=== PATIENT | female | born 1985 | race Caucasian/White ===

== ENCOUNTER 2022-10-18 04:58 | Inpatient (IN) | payer BC ==
[2022-10-18 05:31] VITALS: BMI 24.6
[2022-10-18] MEDS ORDERED: NS w/ Oxytocin 30 units 0 ML ONE (08:32)
[2022-10-18] MEDS ORDERED: Promethazine HCl 25 MG/ML VIAL IM PRN (08:39)
[2022-10-18] MEDS ORDERED: HYDROcodone/Acetaminophen 5/325 mg Tablet PO PRN ×4 (08:39→17:00)
[2022-10-18] MEDS ORDERED: hydrALAZINE 20 MG/ML VIAL SLOW IVP PRN ×2 (08:39→17:00)
[2022-10-18] MEDS ORDERED: Diphenoxylate HCl/Atropine Tablet PO PRN ×2 (08:39)
[2022-10-18] MEDS ORDERED: Misoprostol 200 MCG TAB PR PRN (08:39)
[2022-10-18] MEDS ORDERED: Docusate 100 MG CAP PO PRN (08:39)
[2022-10-18] MEDS ORDERED: Butorphanol Tartrate 1 MG/ML VIAL SLOW IVP PRN (08:39)
[2022-10-18] MEDS ORDERED: Ondansetron PF 4 MG/2 ML Vial IVP PRN ×2 (08:39→17:00)
[2022-10-18] MEDS ORDERED: Lidocaine 1% (PF) 30 ML VIAL SC PRN (08:39)
[2022-10-18] MEDS ORDERED: Acetaminophen 500 MG TAB PO PRN (08:39)
[2022-10-18] MEDS ORDERED: NS w/ Oxytocin 30 units 500 ML IV SCH ×3 (08:45→17:00)
[2022-10-18] MEDS ORDERED: Lactated Ringer's 1,000 ML IV SCH (08:45)
[2022-10-18 09:19] LABS: Hemoglobin 13.5 g/dL (12.0-15.5); Mean Corpuscular HGB CONC 34.5 g/dL (32.0-36.0); Mean Corpuscular Hemoglobin 31.3 pg (27.0-33.0); Mean Corpuscular Volume 90.5 fl (81.6-98.3); Mean Platelet Volume 10.7 fl (7.4-10.4); Platelet Count 234 10x3/uL (150-450); RBC Distribution Width 13.5 % (11.5-14.5); Red Blood Cell (RBC) Count 4.32 10x6/uL (3.90-5.03); White Blood Cell (WBC) Count 11.6 10x3/uL (3.5-10.5)
[2022-10-18 09:45] LABS: HBSAg Index 0.14 S/CO (0-0.99); HIV (1/2) Antibody/Antigen Non-Reactive (NonReactive); HIV 1/2 INDEX 0.04 S/CO (<1.00); Hep B Surf Ag Non-Reactive S/CO (NonReactive)
[2022-10-18 09:46] LABS: Syphilis Antibody Nonreactive (Nonreactive); Syphilis Antibody Index 0.03 S/CO (<1.00 Non-Reactive)
[2022-10-18] MEDS ORDERED: Oxytocin 10 UNITS/ML VIAL ONE (16:26)
[2022-10-18] MEDS ORDERED: Preparation H Ointment 28 GM TUBE PR PRN (17:00)
[2022-10-18] MEDS ORDERED: Lanolin Ointment 7 GM TUBE TOP PRN (17:00)
[2022-10-18] MEDS ORDERED: Misoprostol 200 MCG TAB VAG PRN (17:00)
[2022-10-18] MEDS ORDERED: diphenhydrAMINE 25 MG CAP PO PRN (17:00)
[2022-10-18] MEDS ORDERED: Bisacodyl 10 MG SUPP PR PRN (17:00)
[2022-10-18] MEDS ORDERED: Milk Of Magnesia 30 ML UDCUP PO PRN (17:00)
[2022-10-18] MEDS ORDERED: Boostrix 0.5 ML (Tdap) VIAL (>/=7 yrs of age) IM ONE (17:00)
[2022-10-18] MEDS ORDERED: Zolpidem Tartrate 5 MG TAB PO PRN (17:00)
[2022-10-18] MEDS ORDERED: Benzocaine-Menthol 82.5 ML CAN TOP PRN (17:00)
[2022-10-18] MEDS: Ibuprofen 800 MG TAB PO PRN ×2 (18:37→22:22)
[2022-10-18] MEDS: Dextrose 5%-Lactated Ringers 1,000 ML IV SCH (19:23)
[2022-10-19] MEDS: Acetaminophen 325 MG TAB PO SCH ×3 (02:44→14:07)
[2022-10-19 05:34] LABS: Mean Corpuscular HGB CONC 35.1 g/dL (32.0-36.0); Mean Corpuscular Hemoglobin 31.4 pg (27.0-33.0); Mean Corpuscular Volume 89.4 fl (81.6-98.3); Mean Platelet Volume 10.6 fl (7.4-10.4); Platelet Count 217 10x3/uL (150-450); RBC Distribution Width 13.5 % (11.5-14.5); White Blood Cell (WBC) Count 16.9 10x3/uL (3.5-10.5)
[2022-10-19] MEDS: Ibuprofen 800 MG TAB PO SCH ×2 (05:37→08:05)
[2022-10-19] MEDS: Dextrose 5%-Lactated Ringers 1,000 ML IV SCH ×2 (08:08→14:06)
[2022-10-19] MEDS ORDERED: Prenatal Vitamin 1 TAB PO SCH (09:00)
[2022-10-19] MEDS: Ferrous Sulfate 325 MG TAB PO SCH (09:46)
[2022-10-19] MEDS: Docusate 100 MG CAP PO SCH ×2 (09:47)
[2022-10-19 12:03] VITALS: BP 98/58; TEMP 97.7
[2022-10-19] MEDS ORDERED: Ibuprofen 800 MG TAB PO SCH (16:00)
== END 2022-10-19 18:10 | disposition home or self-care (01) | DRG 807 ==
LOC: CSHLD/OP 04:58 → CSHLD 09:35 → CSHPP 19:57
PROVIDERS: ADMIT Obstetrics & Gynecology; ATTEND Obstetrics & Gynecology
PROC: 10E0XZZ Delivery of Products of Conception, External Approach (ICD-10-PCS; principal; 2022-10-18)
PROC: 10907ZC Drainage of Amniotic Fluid, Therapeutic from Products of Conception, Via Natural or Artificial Opening (ICD-10-PCS; 2022-10-18)
PROC: 0HQ9XZZ Repair Perineum Skin, External Approach (ICD-10-PCS; 2022-10-18)
DX: O99.62 Diseases of the digestive system complicating childbirth (principal); Z37.0 Single live birth; Z3A.37 37 weeks gestation of pregnancy; Z86.16 Personal history of COVID-19; K21.9 Gastro-esophageal reflux disease without esophagitis; Z79.82 Long term (current) use of aspirin; O70.0 First degree perineal laceration during delivery
CPT/HCPCS: 36415; 71045; 85027; 86780; 86850; 86900; 86901; 87340; 87389; 99285; J2001; J2590

== ENCOUNTER 2024-09-09 12:53 | Outpatient (CLI) | payer BC | END 2024-09-09 12:54 | disposition home or self-care (01) | LOC: CSHMAMMO 12:53 | PROVIDERS: ATTEND Obstetrics & Gynecology | DX: Z12.31 Encounter for screening mammogram for malignant neoplasm of breast (principal) | CPT/HCPCS: 77063; 77067 ==